=== PATIENT | male | born 1970 | race Hispanic/Latino ===

== ENCOUNTER 2017-06-10 12:27 | Outpatient (CLI) | payer BC ==
--- NOTE | 2017-06-13 10:22 | XRay Report ---
LUMBAR SPINE WITH OBLIQUES 5 VIEWS: 06/10/17 12:27:00 CLINICAL: Subacute back pain. FINDINGS: L5-S1 pars defect and grade I L5-S1 spondylolisthesis. The arrest of the bodies are normal alignment. Mild disc space narrowing at L5-S1. Small anterior osteophytes at L3-4 and L4-5. The pedicles are intact. No fracture. Normal soft tissues. IMPRESSION: L5-S1 spondylosis and grade I L5-S1 spondylolisthesis. Mild spondylosis at L3-4 and L4-5.
== END 2017-06-10 12:28 | disposition home or self-care (01) ==
LOC: SPVIMAG 12:27
PROVIDERS: ATTEND Internal Medicine
DX: M47.896 Other spondylosis, lumbar region (principal); M43.17 Spondylolisthesis, lumbosacral region; M25.78 Osteophyte, vertebrae
CPT/HCPCS: 72110